=== PATIENT | male | born 1975 | race African-American/Black ===

== ENCOUNTER 2018-12-27 11:57 | Emergency (ER) | payer OTHER, SELFPAY ==
[2018-12-27] MEDS ORDERED: Naproxen 500 MG TAB ONE (13:35)
--- NOTE | 2018-12-27 13:48 | RAD ---
LEFT SHOULDER THREE VIEWS: HISTORY: Shoulder pain. FINDINGS: No signs of fracture or dislocation. Joint spaces appear unremarkable. IMPRESSION: Unremarkable left shoulder. POS: [facility]
== END 2018-12-27 14:13 | disposition home or self-care (01) ==
LOC: ERS 11:57
DX: M25.512 Pain in left shoulder (principal); F17.210 Nicotine dependence, cigarettes, uncomplicated

== ENCOUNTER 2019-04-11 14:06 | Emergency (ER) | payer OTHER ==
[2019-04-11] MEDS ORDERED: traMADol HCl 50 MG TAB ONE (15:44)
== END 2019-04-11 15:52 | disposition home or self-care (01) ==
LOC: ERS 14:06
DX: M25.512 Pain in left shoulder (principal); F17.210 Nicotine dependence, cigarettes, uncomplicated
CPT/HCPCS: 99283